=== PATIENT | female | born 1965 | race Caucasian/White ===

== ENCOUNTER 2020-04-04 08:07 | Emergency (ER) | payer OTHER, SELFPAY ==
[2020-04-04] VITALS (7 sets, daily range): BP systolic 114–141; BP diastolic 56–93; PULSE 55–79; RESP 14–18; TEMP 36.9; O2SAT 98–100
--- NOTE | ~2020-04-04 | CT_ITS ---
EXAMINATION: CT LE RT wo con DATE: 04/04/2020 09:57 INDICATION: Right ankle fracture TECHNIQUE: Computed tomography (CT) of the right ankle was performed without intravenous contrast. Th e dose-length product was 248.28 mGy-cm. Automated exposure control and iterative reconstruction tech nique were employed. COMPARISON: 04/04/2020 FINDINGS: There is an oblique fracture of the distal fibula with approximately 6 mm dorsal displaceme nt. The fracture line extends just inferior to the level of the tibial plafond. There are multiple av ulsion fractures involving the medial malleolus medially and posterior medially. There is moderate so ft tissue swelling the remainder of the visualized osseous structures are intact. Talar dome is unrem arkable. IMPRESSION: 1. Bimalleolar fracture with mild displacement of oblique distal fibular fracture. Reviewed, dictated and finalized at location A. IMPRESSION: 1. Bimalleolar fracture with mild displacement of oblique distal fibular fractu re.
--- NOTE | ~2020-04-04 | XR_ITS ---
EXAMINATION: XR ankle RT 2V DATE: 04/04/2020 09:25 INDICATION: Right ankle fracture dislocation status post reduction. TECHNIQUE: 2 views of right ankle were obtained. COMPARISON: Right ankle radiographs 04/04/2020 FINDINGS: There is an oblique fracture of distal fibula with medial aspect of the fracture line 2 mm distal to the level of the tibial plafond. There are chip avulsion fracture fragments at the medial m alleolus. There is mild osteoarthritis of talonavicular joint. There are enthesophytes at the posteri or and plantar aspects of calcaneal tuberosity. Ankle soft tissue swelling is noted. Cast material is noted. IMPRESSION: 1. Bimalleolar ankle fracture with improvement in alignment. Reviewed, dictated and finalized at location A.
--- NOTE | ~2020-04-04 | XR_ITS ---
XR ankle RT min 3V 04/04/2020 08:25 Indication: Right ankle pain after fall Procedure: 3 views right ankle Comparison: No prior studies for comparison. Findings: There is bimalleolar fracture with lateral subluxation of the talus with respect to the tib ia. There is widening of the medial ankle mortise. There is also dorsal subluxation of the talus. Mod erate soft tissue swelling. Prominent degenerative calcaneal enthesophytes. Impression: 1: Displaced bimalleolar fracture. Reviewed, dictated and finalized at location A. Impression: 1: Displaced bimalleolar fracture.
--- NOTE | 2020-04-04 08:14 | ED.LOWEXIN ---
HPI - Extremity Injury (Lower) General Chief Complaint: Extremity Injury, Lower Stated Complaint: ANKLE INJURY Time Seen by Provider: 04/04/20 08:09 Source: RN notes reviewed History of Present Illness HPI Narrative: Patient presents emergency department from home for ankle pain. Patient states that just prior to arrival she tripped going down the last 2 steps of her stairs. She states that that time she twisted her ankle and noted deformity unable to walk on the ankle since that time. She denies striking her head or any other injuries. She denies any numbness or tingling of the extremity Related Data Home Medications Medication Instructions Recorded Confirmed escitalopram oxalate mg 04/04/20 hydrochlorothiazide 04/04/20 Allergies Allergy/AdvReac Type Severity Reaction Status Date / Time No Known Allergies Allergy Verified 04/04/20 08:16 Review of Systems Review of Systems: Narrative: Gen.: Denies fevers or chills Eyes: Denies visual change ENT: Denies facial pain Respiratory: Denies shortness of breath or cough CV: Denies chest pain GI: Denies abdominal pain nausea, emesis Musculoskeletal: See HPI Neuro: Denies headache or loss of consciousness Skin: Denies rash Except as documented, all other systems reviewed and negative PMFSH Past Medical History Medical History (Updated 04/04/20 @ 12:31 by Sammy Royal DO) Patient denies significant medical history Social History Social History (Updated 04/04/20 @ 08:16 by Sammy Royal DO) Smoking status: Never smoker Gender identity (if verbalized by the patient): Female Exam Narrative: Exam Narrative: APPEARANCE: No acute distress, nontoxic, resting in bed EYES: EOMI HEENT: Normocephalic, atraumatic, OMM RESPIRATORY: No respiratory distress Clear to auscultation bilaterally with no rhonchi wheezing or rales. CARDIOVASCULAR: Regular rate and rhythm without murmurs rubs or gallops. ABDOMINAL: Soft, nontender, MUSCULOSKELETAl: Moves all extremities. No clubbing, cyanosis right ankle is diffusely tender to palpation with deformity noted no tenderness of the proximal fibula or the base of the fifth metatarsal and dorsalis pedis pulse 2+, neurovascular intact NEURO: Awake and alert x 3. Following commands, speech normal, no focal deficits SKIN:: Warm, dry. No rashes lesions or abrasions PSYCHIATRIC: Normal affect/mood, Course Course Emergency Course: : Discussed with Dr. Myles currently if surgery request patient have CT scan obtained Discussed with Dr. Myles who is able to review CT scan. States the patient with a tibial plafond fracture states patient will need to follow-up with orthopedics at [facility] Discussed with [facility] given number for orthopedics will discharge at this time with patient follow-up as an outpatient Discussed with patient results of workup and diagnosis. Discussed need for follow-up with primary care, proper use of medication, and reasons to return to the emergency department. Patient understands and agrees to current treatment plan Vital Signs Vital signs: Vital Signs Temperature 98.4 F 04/04/20 08:12 Pulse Rate 62 04/04/20 08:12 Respiratory Rate 14 04/04/20 08:12 Blood Pressure 124/56 L 04/04/20 08:12 Pulse Oximetry 98 04/04/20 08:12 Temperature 98.4 F 04/04/20 08:12 Pulse Rate 55 L 04/04/20 11:48 Respiratory Rate 16 04/04/20 11:48 Blood Pressure 114/71 04/04/20 11:48 Pulse Oximetry 99 04/04/20 11:48 Procedures Orthopedic Fracture Reduction Fracture #1: Side: right Fracture Reduction Location: tibia (Right ankle) Pre-Procedure Neuro Vascular Exam: normal Technique: traction/counter-traction Post Reduction X-rays Demonstrate: anatomical reduction Post-reduction neuro exam: intact Post-reduction vascular exam: intact Splint Applied: Yes Patient Tolerated Procedure: well Orthopedic Splinting/Casting Inju
[2020-04-04] MEDS: MORPHINE SULFATE 4 MG/ML INJ IV PUSH (08:31)
[2020-04-04] MEDS: ONDANSETRON INJ 4 MG/2 ML VIAL IV PUSH (08:32)
--- NOTE | 2020-04-04 09:05 | PC.NURSE ---
Dr. Royal at bedside. Let lower extremity reduced per Dr. Royal. Posterior and sugar tong OCL placed and secured with urban wraps. Pt reports relief with placement. Cap refill and toe movement intact post reduction. Xray ordered for post reduction film.
--- NOTE | 2020-04-04 10:53 | PC.NURSE ---
Dr. Myles in surgery, will review CT results dimas. Pt updated. Denies needs at present.
--- NOTE | 2020-04-04 11:10 | PC.NURSE ---
Report to SHABBIR Richard, to continue care. Pt updated on continued delay, states her daughter works at [employer] and that Dr. Myles is in surgery there. Asking if she has to wait. Explained that we are continuing to await Dr. Myles viewing of her films prior to proceeding. Denies needs at present.
== END 2020-04-04 13:22 | disposition home or self-care (01) ==
PROVIDERS: Emergency Provider Emergency Medicine
DX: S82.841A Displaced bimalleolar fracture of right lower leg, initial encounter for closed fracture (principal); W10.9XXA Fall (on) (from) unspecified stairs and steps, initial encounter
CPT/HCPCS: 27810; 73600; 73610; 73700; 96374; 96375; 99285; J2270; J2405

== ENCOUNTER 2020-09-20 00:18 | Outpatient (CLI) | payer OTHER, SELFPAY ==
[2020-09-20 18:51] LABS: SARS-CoV-2 RNA PCR Negative
== END 2020-09-20 00:19 | disposition home or self-care (01) ==
LOC: ANHCOVIDDT 00:18
PROVIDERS: Visit Provider Podiatrist Foot & Ankle Surgery
DX: Z01.812 Encounter for preprocedural laboratory examination (principal); Z20.828 Contact with and (suspected) exposure to other viral communicable diseases
CPT/HCPCS: 87635; C9803; U0003

== ENCOUNTER 2020-09-22 01:07 | Day surgery (SDC) | payer OTHER, SELFPAY ==
[2020-09-11 10:45] VITALS: BMI 25.0
[2020-09-22 12:42] VITALS: BP 127/71; PULSE 60; RESP 16; TEMP 36.6; O2SAT 100
--- NOTE | 2020-09-22 12:50 | WPDHPUPDATE1 ---
History and Physical Update Update Date/Time: 09/22/20 12:50 History and Physical has been reviewed, including an updated exam of the patient. There are NO changes in the patient's condition. Risks, benefits, and alternatives have been discussed and questions answered. Patient agrees to proceed with procedure.
[2020-09-22] MEDS: LIDO 2%/EPINEPHRINE 1:100,000 20 ML VIAL 10 ML INFILTRATE (12:56)
[2020-09-22] MEDS: BACITRACIN OINTMENT 15 GM TUBE 1 APPLIC TOPICAL (12:56)
[2020-09-22] MEDS: BUPIVACAINE HCL 0.5% PF 30 ML VIAL INFILTRATE (12:56)
[2020-09-22 13:00] VITALS: BP 139/75; PULSE 59; RESP 18; O2SAT 98
[2020-09-22 13:10] VITALS: BP 141/70; PULSE 58; RESP 16; O2SAT 98
[2020-09-22 13:20] VITALS: BP 138/67; PULSE 54; RESP 16; O2SAT 99
--- NOTE | 2020-09-22 13:27 | P.OP_ITS ---
Procedure Note - Detailed Date of procedure: 09/22/20 Pre-op diagnosis: painful hardware Post-op diagnosis: same Procedure performed: Removal of hardware left foot Description of procedure: The patient was brought into the operating room, [facility] on the operating table in a supine position. Local anesthesia was obtained using 2% Lidocaine plain and 0.5% Marcaine plain. The foot was then scrubbed, prepped and draped in the usual aseptic manner. Attention was then directed to the 1st digit where a linear incision made dorsal to the 1st metatarsal neck. It was deepened down to the level of the prominent screw. The screw was removed without incident. The wound was flushed with copious amounts of sterile saline. The wound was closed with 3-0 nylon. Patient tolerated procedure and anesthesia well. She was transferred to the recovery room with vital signs stable and neurovascular status intact to all digits of the right foot. Following a period of post-operative monitoring the patient will be discharged home with written and oral post-operative instructions. Anesthesia: local Surgeon: Festus Joshi DPM Correctional Therapy Teacher: none Estimated blood loss (mL): 5 Drains: No Packing: No Pathology: none sent Complications: No immediate complications Condition: stable Disposition: PACU
[2020-09-22 13:28] VITALS: BP 146/74; PULSE 52; RESP 16; O2SAT 100
[2020-09-22 13:58] VITALS: BP 153/76; PULSE 58; RESP 16
== END 2020-09-22 14:05 | disposition home or self-care (01) ==
PROVIDERS: Visit Provider Podiatrist Foot & Ankle Surgery
PROC: (CPT 20680; principal; 2020-09-22 13:15)
DX: T84.84XA Pain due to internal orthopedic prosthetic devices, implants and grafts, initial encounter (principal); Y83.8 Other surgical procedures as the cause of abnormal reaction of the patient, or of later complication, without mention of misadventure at the time of the procedure
CPT/HCPCS: 20680; A9270